=== PATIENT | male | born 1990 | race Two or more races ===

== ENCOUNTER 2025-03-27 12:53 | Emergency (ER) | payer MEDICAID ==
[~2025-03-27] VITALS: Ht 172.7 cm; Wt 80.0 kg
[2025-03-27] MEDS: OLANZAPINE 10 MG/VIAL IM ONE ×2 (13:15→15:58)
[2025-03-27 13:54] LABS: BASOPHILS % 0.2 % (0.0-2.0); HEMATOCRIT. 45.2 % (42.0-52.0); HEMOGLOBIN. 14.9 g/dL (14.0-18.0); LYMPHOCYTES % 15.6 % (20.0-50.0); MEAN CORPUSCULAR HEMOGLOBIN 28.2 pg (28.0-32.0); MEAN CORPUSCULAR VOLUME 85.6 fL (80.0-94.0); MONOCYTES % 5.9 % (2.0-8.0); NEUTROPHILS % 78.3 % (40.0-76.0); PLATELET 274 x1000/uL (130-400); RED BLOOD CELL COUNT 5.28 mill/uL (4.7-6.1); RED CELL DISTRIBUTION WIDTH 13.7 % (11.6-14.6); WHITE BLOOD COUNT 8.3 x1000/uL (4.5-11.0)
[2025-03-27 13:58] LABS: CHLORIDE 101 mEq/L (98-107); SODIUM 136 mEq/L (136-145)
[2025-03-27 13:59] LABS: CALCIUM 9.4 mg/dL (8.7-10.4); CARBON DIOXIDE 20 mEq/L (21-32)
[2025-03-27 14:04] LABS: CREATININE 1.2 mg/dL (0.6-1.3); GLUCOSE 215 mg/dL (70-105); UREA NITROGEN BLOOD 12 mg/dL (9-23)
[2025-03-27 14:05] LABS: ETHANOL BLOOD < 10 mg/dL (<10)
[2025-03-27 14:56] LABS: CLARITY URINE CLEAR (CLEAR); COLOR URINE DARK YELLOW (YELLOW); GLUCOSE URINE NEGATIVE (NEGATIVE); KETONES URINE 1+ (NEGATIVE); LEUKOCYTE ESTERASE URINE NEGATIVE (NEGATIVE); NITRITE URINE NEGATIVE (NEGATIVE); OCCULT BLOOD URINE NEGATIVE (NEGATIVE); PROTEIN URINE 2+ (NEGATIVE)
[2025-03-27 15:06] LABS: BACTERIA URINE NONE SEEN; COARSE GRANULAR CASTS URINE 0-5 /lpf; HYALINE CASTS URINE 0-5 /lpf; RBC URINE 0-2 /hpf (0-2); SQUAMOUS EPITHELIAL CELL URINE 1+ /lpf (RARE/1+); YEAST URINE NONE SEEN
[2025-03-27 15:07] LABS: MUCUS URINE 1+ /lpf (NONE/TRACE)
[2025-03-27 15:23] LABS: *AMPHETAMINES SCREEN URINE PRESUMPTIVE POSITIVE (NEGATIVE)
[2025-03-27 15:24] LABS: *BARBITURATES SCREEN URINE NEGATIVE (NEGATIVE); *BENZODIAZEPINES SCREEN URINE PRESUMPTIVE POSITIVE (NEGATIVE); *COCAINE SCREEN URINE NEGATIVE (NEGATIVE); CANNABINOID URINE SCREEN PRESUMPTIVE POSITIVE (NEGATIVE); ECSTASY MDMA SCREEN URINE CONF.TEST INDICATED (NEGATIVE); METHADONE URINE SCREEN NEGATIVE (NEGATIVE); OPIATES URINE SCREEN NEGATIVE (NEGATIVE); PHENCYCLIDINE URINE SCREEN NEGATIVE (NEGATIVE)
[2025-03-27] MEDS: POTASSIUM CHLORIDE 20MEQ/PACKET PO ONE (15:58)
[2025-03-27 15:59] VITALS: O2SAT 98
[2025-03-27] MEDS: MIDAZOLAM HCL 2 MG/2 ML VIAL IM ONE (15:59)
[2025-03-28] MEDS: HALOPERIDOL LACTATE 5MG/ML VIAL IM ONE (05:03)
[2025-03-28] MEDS ORDERED: CEFP200T13 MT (12:14)
[2025-03-28 13:23] VITALS: BP 130/82; PULSE 83; RESP 16; TEMP 36.8; O2SAT 98
== END 2025-03-28 13:25 | disposition home or self-care (01) ==
LOC: ER 12:53
DX: F20.9 Schizophrenia, unspecified (principal); N39.0 Urinary tract infection, site not specified; F19.10 Other psychoactive substance abuse, uncomplicated; Z59.00 Homelessness unspecified; Z79.899 Other long term (current) drug therapy
CPT/HCPCS: 80305; 80048; 81003; 80320; 85025; 36415; 96372 ×2; 99285; J3490; J2250; Z7610 ×2; J1630; G0480

== ENCOUNTER 2025-09-30 00:01 | Emergency (ER) | payer MEDICAID ==
[~2025-09-30] VITALS: Ht 172.7 cm; Wt 90.0 kg
[~2025-09-30 00:01] MED LIST: CEFP200T13 MT
[2025-09-30 00:08] VITALS: O2SAT 98
[2025-09-30] MEDS: LORAZEPAM 1MG TABLET PO ONE (00:36)
[2025-09-30] MEDS: TRAZODONE HCL 50MG TABLET PO SCH (01:50)
[2025-09-30 02:02] LABS: *AMPHETAMINES SCREEN URINE PRESUMPTIVE POSITIVE (NEGATIVE)
[2025-09-30 02:03] LABS: *BARBITURATES SCREEN URINE NEGATIVE (NEGATIVE); *BENZODIAZEPINES SCREEN URINE NEGATIVE (NEGATIVE); *COCAINE SCREEN URINE NEGATIVE (NEGATIVE); CANNABINOID URINE SCREEN PRESUMPTIVE POSITIVE (NEGATIVE); METHADONE URINE SCREEN NEGATIVE (NEGATIVE); OPIATES URINE SCREEN NEGATIVE (NEGATIVE); PHENCYCLIDINE URINE SCREEN NEGATIVE (NEGATIVE)
[2025-09-30 02:04] LABS: ECSTASY MDMA SCREEN URINE CONF.TEST INDICATED (NEGATIVE)
[2025-09-30 02:24] LABS: BASOPHILS % 0.3 % (0.0-2.0); EOSINOPHILS % 0.0 % (0.0-5.0); HEMATOCRIT. 43.5 % (42.0-52.0); HEMOGLOBIN. 13.9 g/dL (14.0-18.0); LYMPHOCYTES % 10.7 % (20.0-50.0); MEAN PLATELET VOLUME 8.7 fl (7.4-10.4); MONOCYTES % 4.6 % (2.0-8.0); NEUTROPHILS % 84.4 % (40.0-76.0); PLATELET 319 x1000/uL (130-400); RED BLOOD CELL COUNT 4.93 mill/uL (4.7-6.1); RED CELL DISTRIBUTION WIDTH 14.3 % (11.6-14.6)
[2025-09-30 02:39] LABS: CREATININE 0.9 mg/dL (0.6-1.3); UREA NITROGEN BLOOD 16 mg/dL (9-23)
[2025-09-30 02:40] LABS: ETHANOL BLOOD < 10 mg/dL (<10)
[2025-09-30 02:41] LABS: ASPARTATE AMINOTRANSFERASE 21 IU/L (<34); BILIRUBIN DIRECT 0.2 mg/dL (<=3.0); BILIRUBIN TOTAL 0.6 mg/dL (0.1-1.0); PROTEIN TOTAL 7.8 g/dL (6.0-8.3)
[2025-09-30] MEDS: OLANZAPINE 5MG TABLET PO SCH (12:15)
[2025-09-30] MEDS: LAMOTRIGINE 100MG TABLET PO SCH (12:30)
[2025-09-30 15:31] VITALS: BP 117/79; PULSE 105; RESP 16; TEMP 36.8; O2SAT 99
[2025-09-30] MEDS ORDERED: TRAZODONE HCL 50MG TABLET PO SCH (21:00)
== END 2025-09-30 15:30 ==
LOC: ER 00:01
DX: F22 Delusional disorders (principal); F19.10 Other psychoactive substance abuse, uncomplicated; F20.9 Schizophrenia, unspecified; F31.9 Bipolar disorder, unspecified; F41.9 Anxiety disorder, unspecified; Z79.899 Other long term (current) drug therapy; Z20.822 Contact with and (suspected) exposure to COVID-19
CPT/HCPCS: 36415; 80048; 80076; 80305; 80307; 80320; 80329; 85025; 87426; 99285; G0480